=== PATIENT | male | born 1945 | race Caucasian/White ===

== ENCOUNTER 2021-10-30 07:49 | Emergency (ER) | payer SELFPAY ==
[~2021-10-30] VITALS: Ht 170.2 cm; Wt 46.0 kg
--- NOTE | 2021-10-30 08:07 | PHYS DOC ---
General Adult EDM: Chief Complaint: MULTIPLE COMPLAINTS HPI: HPI: Patient is a 76-year-old male brought in from one of the local nursing homes. Patient actually pulled out his peripheral IV as well as his Thomason catheter. Patient is currently receiving IV antibiotics and needs this replaced. No other injuries or complaints. No recent illness otherwise. This occurred just earlier this morning. Review of Systems: Review of Systems: Constitutional: Denies fever Eyes: Denies change in visual acuity or eye pain HENT: Denies sore throat Respiratory: Denies shortness of breath Cardiovascular: Denies chest pain GI: Denies abd pain : Denies dysuria Musculoskeletal: Denies back or extremity injury Integument: Denies rash or skin lesions Neurologic: Denies headache, focal weakness or sensory changes All other systems were reviewed and found to be within normal limits, except as documented in this note. Physical Exam: PE: Constitutional: Well developed, well nourished though thin, almost cachectic in appearance, no acute distress, non-toxic appearance. HENT: Normocephalic, atraumatic, bilateral external ears normal, mucosa moist, nose normal. Eyes: EOMI, conjunctiva normal, no discharge. Neck: Normal range of motion, supple, no stridor, no meningeal signs. Cardiovascular: Regular rate and rhythm Lungs & Thorax: Bilateral breath sounds clear to auscultation Abdomen: Soft, no tenderness or obvious masses Genitourinary: Normal external genitalia. Patient has remnant to the Thomason in place, it appears to been cut with a pair of scissors or sharp object. This was easily removed. No blood. Skin: Warm, dry, no erythema, no rash, multiple small bruises on his upper extremities. Extremities: No tenderness, no cyanosis, no clubbing, ROM intact, no edema. Neurologic: Alert and oriented, normal motor function, normal sensory function, no focal deficits noted. Psychologic: Affect normal, judgement normal, mood normal. EKG: EKG: [] Radiology/Procedures: Radiology/Procedures: [] Heart Score: C/O Chest Pain: No Risk Factors: Risk Factors: DM, Current or recent (<one month) smoker, HTN, HLP, family history of CAD, obesity. Risk Scores: Score 0 - 3: 2.5% MACE over next 6 weeks - Discharge Home Score 4 - 6: 20.3% MACE over next 6 weeks - Admit for Clinical Observation Score 7 - 10: 72.7% MACE over next 6 weeks - Early Invasive Strategies Course & Med Decision Making: Course & Med Decision Making Pertinent Labs and Imaging studies reviewed. (See chart for details) [] This is a 76-year-old male who presents needing a peripheral IV and Thomason replacement. The Thomason was removed and Was replaced without difficulty. IV was established. Patient's stable for transport back to the [facility]. Wilbert Disclaimer: Wilbert Disclaimer: This electronic medical record was generated, in whole or in part, using a voice recognition dictation system. Departure Departure: Impression: Primary Impression: Encounter for Thomason catheter replacement Additional Impression: Displacement of peripheral intravenous catheter Disposition: 01 HOME / SELF CARE / HOMELESS Condition: STABLE Patient Instructions: Thomason Catheter Care, Adult, Peripheral Intravenous Catheter CODY HERNÁNDEZ MD Oct 30, 2021 08:07
[2021-10-30 10:45] VITALS: BP 122/77
== END 2021-10-30 11:15 | disposition home or self-care (01) ==
LOC: ER 07:49
DX: Z46.6 Encounter for fitting and adjustment of urinary device (principal); T82.524A Displacement of infusion catheter, initial encounter
CPT/HCPCS: 51702; 99284